=== PATIENT | female | born 1950 | race Caucasian/White ===

== ENCOUNTER 2021-11-15 16:17 | Outpatient (CLI) | payer MEDICARE, OTHER | END 2021-11-15 16:18 | disposition home or self-care (01) | LOC: CSHRAD 16:17 | PROVIDERS: ATTEND Family Medicine Sports Medicine | DX: R05.9 Cough, unspecified (principal); J98.4 Other disorders of lung; J94.8 Other specified pleural conditions | CPT/HCPCS: 71046 ==

== ENCOUNTER 2021-12-27 12:08 | Outpatient (CLI) | payer MEDICARE, OTHER | END 2021-12-27 12:09 | disposition home or self-care (01) | LOC: CSHRAD 12:08 | PROVIDERS: ATTEND Family Medicine Sports Medicine | DX: J18.9 Pneumonia, unspecified organism (principal) | CPT/HCPCS: 71046 ==

== ENCOUNTER 2022-07-18 13:15 | Outpatient (CLI) | payer MEDICARE, OTHER | END 2022-07-18 13:16 | disposition home or self-care (01) | LOC: CSHMAMMO 13:15 | PROVIDERS: ATTEND Family Medicine Sports Medicine | DX: Z13.820 Encounter for screening for osteoporosis (principal); M85.851 Other specified disorders of bone density and structure, right thigh; M85.852 Other specified disorders of bone density and structure, left thigh; Z78.0 Asymptomatic menopausal state | CPT/HCPCS: 77080 ==